=== PATIENT | female | born 1980 | race Caucasian/White ===

== ENCOUNTER 2017-10-05 23:47 | Emergency (ER) | payer OTHER ==
[2017-10-06 02:07] LABS: URINE BLOOD (Dip) POC Negative (NEGATIVE); URINE GLUCOSE (Dip) POC Negative (NEGATIVE); URINE KETONES (Dip) POC Negative (NEGATIVE); URINE LEUKOCYTE EST (Dip) POC Negative (NEGATIVE); URINE NITRITE (Dip) POC Negative (NEGATIVE); URINE TOTAL PROTEIN POC Trace (NEGATIVE)
[2017-10-06] MEDS: KETOROLAC 15 MG INJ IM (02:26)
[2017-10-06] MEDS: ACETAMINOPHEN 325 MG TAB PO (02:26)
[2017-10-06] MEDS: ONDANSETRON 4 MG TAB PO (02:54)
== END 2017-10-06 04:07 | disposition home or self-care (01) ==
LOC: FTE 23:47
DX: M54.2 Cervicalgia (principal); M54.9 Dorsalgia, unspecified; M79.602 Pain in left arm
CPT/HCPCS: 72040; 81003; 81025; 96372; 99284-25